=== PATIENT | male | born 1965 | race Caucasian/White ===

== ENCOUNTER 2017-12-18 14:14 | Emergency (ER) | payer OTHER ==
--- NOTE | 2017-12-18 15:35 | EDPHY ---
H & P Time Seen by Provider: 12/18/17 14:54 HPI/ROS: CHIEF COMPLAINT: Back pain, left buttock pain HISTORY OF PRESENT ILLNESS: Patient is a 52-year-old male who presents emergency department with back pain, left buttock pain, and left thigh numbness. The patient was doing sure he work and lifting heavy couch is. He states he was significantly straining. He did not notice any pain immediately. However, upon returning home he developed lumbar back pain this radiates to his left buttock. He describes it as moderate to severe. It is worse with movement. He also has numbness on the lateral and anterior aspect of his thigh. He denies weakness. He has had no incontinence of urine or stool. No fevers or chills. No fall or trauma. No previous back surgery. Patient denies abdominal pain. No nausea vomiting. REVIEW OF SYSTEMS: My complete review of systems is negative except as mentioned in the HPI. Past Medical/Surgical History: Includes multiple orthopedic surgeries. No back surgery. Smoking Status: Never smoked Physical Exam: Vitals noted GENERAL: Well-appearing, in no acute distress, alert. HEENT: Eyes normal to inspection, normal pharynx, no signs of dehydration. NECK: [No thyromegaly, no lymphadenopathy, supple. RESPIRATORY: Clear to auscultation bilaterally, no rales, rhonchi or wheezing. CVS: Regular rate and rhythm, no rubs, murmurs, or gallops. ABDOMEN: Soft, nontender, nondistended, no organomegaly. BACK: Normal to inspection, no CVA tenderness. No tenderness palpation. No rash. Pelvis: Stable. No tenderness palpation. SKIN: Normal color, no rash, warm, dry. No pallor. EXTREMITIES: No pedal edema, no calf tenderness, no Homans sign or cords, no joint swelling. NEURO/PSYCH: Alert and oriented, normal mood and affect, normal motor sensory exam. Normal. Constitutional: Initial Vital Signs Temperature (C) 36.8 C 12/18/17 14:22 Heart Rate 60 12/18/17 14:22 Respiratory Rate 16 12/18/17 14:22 Blood Pressure 133/93 H 12/18/17 14:22 O2 Sat (%) 96 12/18/17 14:22 O2 Delivery Mode Room Air Allergies/Adverse Reactions: No Known Allergies Allergy (Unverified 12/18/17 14:21) Home Medications: Medication Instructions Recorded Diazepam [Valium] 5 mg PO Q6 #11 tab 12/18/17 Htn Med 12/18/17 oxyCODONE/APAP 5/325 [Percocet 1 - 2 tab PO Q4PRN PRN #11 tab 12/18/17 5/325 (*)] predniSONE 20 mg PO DAILY 4 Days tab 12/18/17 Medical Decision Making ED Course/Re-evaluation: In the emergency department I discussed possible etiologies with the patient. I answered all his questions. I do not feel the patient needs imaging at this time. I discussed this with the patient. Patient will be given a dose of prednisone in the emergency department. He will be discharged with prednisone, Valium and Percocet. He was given warnings prior to leaving. He will return with worsening symptoms. He was given follow-up with Neurosurgery. Differential Diagnosis: My differential includes but is not limited to musculoskeletal strain, disc herniation, sciatica, cauda equina syndrome, aneurysm, dissection Departure - Departure Disposition: Home, Routine, Self-Care Clinical Impression: Low back pain Qualifiers: Chronicity: acute Back pain laterality: midline Sciatica presence: with sciatica Sciatica laterality: sciatica of left side Qualified Code(s): M54.42 - Lumbago with sciatica, left side Condition: Good Instructions: Acute Low Back Pain (ED), Lumbar Radiculopathy (ED) Referrals: John Trejo MD [Medical Doctor] - As per Instructions Prescriptions: Diazepam [Valium] 5 mg PO Q6 #11 tab oxyCODONE/APAP 5/325 [Percocet 5/325 (*)] 1 - 2 tab PO Q4PRN PRN #11 tab PRN Reason: For Moderate To Severe Pain predniSONE 20 mg PO DAILY 4 Days tab
[2017-12-18] MEDS ORDERED: predniSONE 20 MG TAB PO ONE (15:36)
[2017-12-18 15:45] VITALS: BP 135/78
== END 2017-12-18 15:45 | disposition home or self-care (01) ==
DX: M54.42 Lumbago with sciatica, left side (principal)
CPT/HCPCS: J7512